=== PATIENT | male | born 1955 | race African-American/Black ===

== ENCOUNTER 2017-08-27 19:07 | Emergency (ER) | payer BC ==
[~2017-08-27] VITALS: Ht 165.1 cm; Wt 100.0 kg
[~2017-08-27 19:07] MED LIST: BENAZEPRIL
[2017-08-28] MEDS ORDERED: ACETAMINOPHEN 500MG TABLET PO ONE (00:45)
[2017-08-28] MEDS ORDERED: KETOROLAC 30MG/ML VIAL IM ONE (00:45)
[2017-08-28 01:39] VITALS: BP 134/82
== END 2017-08-28 02:19 | disposition home or self-care (01) ==
LOC: ER 19:07
DX: I42.9 Cardiomyopathy, unspecified (principal); R51 Headache
CPT/HCPCS: 96372; 99283; J1885